=== PATIENT | female | born 1965 | race African-American/Black ===

== ENCOUNTER 2020-12-30 13:45 | Inpatient (IN) | payer OTHER ==
[~2020-12-30] VITALS: Ht 170.2 cm; Wt 91.3 kg
[2020-12-30] MEDS ORDERED: METF-960 PO (13:52)
[2020-12-30] MEDS ORDERED: HYDR25TA2 PO (13:52)
[2020-12-30] MEDS ORDERED: ATOR20TA86 PO (13:52)
[2020-12-30 15:37] LABS: BASOPHILS % (AUTO) 0.7 % (0.0-2.0); EOSINOPHILS % (AUTO) 1.2 % (1.0-6.0); HEMATOCRIT 37.3 % (36-46); HEMOGLOBIN 12.1 g/dL (12.0-16.0); LYMPHOCYTES # (AUTO) 2.3 K/uL (1.0-4.8); LYMPHOCYTES % (AUTO) 47.6 % (22.0-44.0); MEAN CORPUSCULAR HEMOGLOBIN 27.2 pg (26.0-34.0); MEAN CORPUSCULAR HGB CONC 32.5 G/dL (31.0-37.0); MEAN CORPUSCULAR VOLUME 84 fL (80-100); MONOCYTES # (AUTO) 0.3 K/uL (0.1-1.0); MONOCYTES % (AUTO) 7.1 % (2.0-9.0); NEUTROPHILS # (AUTO) 2.1 K/uL (1.8-7.7); NEUTROPHILS % (AUTO) 43.4 % (40.0-70.0); PLATELET COUNT (AUTO) 212 K/uL (150-450); RED BLOOD CELL COUNT(AUTO) 4.46 MIL/uL (4.00-5.20); RED CELL DISTRIBUTION WIDTH 13.8 % (11.5-14.5)
[2020-12-30 15:43] LABS: ANION GAP 4 mmol/L (8-16); CALCIUM, TOTAL 9.2 mg/dL (8.8-10.5); CARBON DIOXIDE 34 mmol/L (22-29); CHLORIDE 101 mmol/L (98-107); CREATININE 0.68 mg/dL (0.60-1.30); GLOMERULAR FILTR. RATE CALC > 60 mL/min (>60); GLUCOSE,RANDOM 186 mg/dL (70-110); POTASSIUM 3.9 mmol/L (3.5-5.1); SODIUM SERUM 139 mmol/L (136-145); UREA NITROGEN, BLOOD 9 mg/dL (7-18)
[2020-12-30 16:05] LABS: B-TYPE NATRIURETIC PEPTIDE 33 pg/mL (0-100)
[2020-12-30 16:08] LABS: ALANINE AMINOTRANSFERASE 43 U/L (12-78); ALBUMIN 3.8 g/dL (3.4-5.0); ALKALINE PHOSPHATASE 82 U/L (46-116); ASPARTATE AMINOTRANSFERASE 27 U/L (15-37); BILIRUBIN,TOTAL 0.3 mg/dL (0.1-1.0); CREATINE KINASE, TOTAL ONLY 489 U/L (26-192); LIPASE 121 U/L (73-393); TOTAL PROTEIN, SERUM 7.1 g/dL (6.4-8.2)
[2020-12-30] MEDS ORDERED: ONDANSETRON HCL 4 MG/2 ML VIAL IVP PRN ×2 (17:15→17:30)
[2020-12-30] MEDS ORDERED: 0.9% SODIUM CHLORIDE 10 ML SYRINGE IVP PRN (17:15)
[2020-12-30] MEDS ORDERED: ACETAMINOPHEN 325 MG TABLET PO PRN ×2 (17:15→17:30)
[2020-12-30 17:30] LABS: THYROID STIMULATING HORMONE 0.84 uIU/mL (0.36-3.74)
[2020-12-30] MEDS ORDERED: INSULIN LISPRO 100 UNITS/ML SQ PRN (17:30)
[2020-12-30] MEDS ORDERED: MAGNESIUM HYDROXIDE SUSPENSION 30 ML UDCUP PO PRN (17:30)
[2020-12-30] MEDS ORDERED: DEXTROSE 50%-WATER 25 GM/50 ML SYRINGE IVP PRN (17:30)
[2020-12-30 19:17] LABS: COVID AG,FIA SOURCE NASOPHARYNGEAL
[2020-12-30 20:30] VITALS: BP 148/77
[2020-12-30] MEDS: HEPARIN SODIUM,PORCINE 5,000 UNITS/ML VIAL SQ SCH (23:24)
[2020-12-30 23:55] VITALS: BP 142/78
[2020-12-31 04:29] VITALS: BP 142/82
[2020-12-31 07:48] VITALS: BP 137/73
[2020-12-31] MEDS ORDERED: MetFORMIN HCL 500 MG TABLET PO SCH (08:00)
[2020-12-31] MEDS: HEPARIN SODIUM,PORCINE 5,000 UNITS/ML VIAL SQ SCH (08:45)
[2020-12-31] MEDS ORDERED: FAMOTIDINE 20 MG TABLET PO SCH (09:00)
[2020-12-31] MEDS ORDERED: ASPIRIN 81 MG CHEWABLE TABLET PO SCH (09:00)
[2020-12-31 11:16] VITALS: BP 143/81
[2020-12-31] MEDS ORDERED: LISINOPRIL 10 MG TABLET PO SCH (13:00)
[2020-12-31] MEDS ORDERED: LISI-893 PO (13:46)
[2020-12-31 15:40] LABS: GLUCOMETER DEV NAME(LOC) 5N.3; GLUCOSE,POINT OF CARE 105 MG/DL (70-110)
[2020-12-31 17:02] LABS: GLUCOMETER DEV NAME(LOC) 5S.1; GLUCOSE,POINT OF CARE 79 MG/DL (70-110)
[2020-12-31 17:37] LABS: GLUCOMETER DEV NAME(LOC) 5S.2B; GLUCOSE,POINT OF CARE 99 MG/DL (70-110)
== END 2020-12-31 15:40 | disposition home or self-care (01) | DRG 310 ==
LOC: EMS 13:52 → 5S 17:30
PROVIDERS: ADMIT Internal Medicine; ATTEND Internal Medicine
DX: R00.1 Bradycardia, unspecified (principal); R00.2 Palpitations; R42 Dizziness and giddiness; I10 Essential (primary) hypertension; E11.9 Type 2 diabetes mellitus without complications; E78.5 Hyperlipidemia, unspecified; E66.9 Obesity, unspecified; Z68.31 Body mass index [BMI] 31.0-31.9, adult; M54.9 Dorsalgia, unspecified; Z20.822 Contact with and (suspected) exposure to COVID-19
CPT/HCPCS: 80053; 82550; 82962; 83690; 83735; 83880; 84443; 84484; 85025; 93005; 93306; 99285; J1644

== ENCOUNTER 2022-09-09 02:25 | Emergency (ER) | payer OTHER ==
[~2022-09-09] VITALS: Ht 172.7 cm; Wt 100.0 kg
[~2022-09-09 02:25] MED LIST: ATOR20TA86 PO; HYDR25TA2 PO; LISI-893 PO; METF-1211 PO
[2022-09-09 02:50] LABS: COVID AG,FIA SOURCE NASAL SWAB
[2022-09-09] MEDS ORDERED: KETOROLAC TROMETHAMINE 60 MG/2 ML VIAL IM ONE (03:00)
[2022-09-09 03:30] LABS: INFLUENZA TYPE A NEGATIVE FOR TYPE A (NEGATIVE); INFLUENZA TYPE B NEGATIVE FOR TYPE B (NEGATIVE)
[2022-09-09 03:31] LABS: RAPID GROUP A STREP NEGATIVE (NEGATIVE)
[2022-09-09] MEDS ORDERED: DEXAMETHASONE SOD PHOS 4 MG/ML 5 ML VIAL IM ONE (04:30)
[2022-09-09] MEDS ORDERED: AMOX TR/POT CLAV 875 MG/125 MG TABLET PO ONE (04:30)
[2022-09-09 04:40] VITALS: BP 152/83
[2022-09-09] MEDS ORDERED: AMOX1TAB16 PO (04:44)
== END 2022-09-09 05:02 | disposition home or self-care (01) ==
LOC: EMS 02:30
DX: J02.9 Acute pharyngitis, unspecified (principal); F41.9 Anxiety disorder, unspecified; I10 Essential (primary) hypertension; Z20.822 Contact with and (suspected) exposure to COVID-19
CPT/HCPCS: 99284; 71045; 87426; 87430; 87804; 96372; J1100; J1885